=== PATIENT | female | born 1970 | race African-American/Black ===

== ENCOUNTER → 2016-10-29 | Outpatient (CLI) | payer BC ==
[~2016-10-29] MED LIST: ALBUTEROL 0.5ML INH; ALLERGY PILL; BENZONATATE PO; COZAAR25 MG; FLEXERIL10 M1 PO; KCL PO; LASIX PO; LASIX20 MG; MUCINEX DM1 TAB.SR . PO; NAPROSYN500 MG PO; PREDNISONE PO; ULTRAM PO; ZITHROMAX PO
--- NOTE | ~2016-10-29 | MR104 ---
[facility] A Service of [facility] & [facility] RADIOLOGY TEXT RESULTS PATIENT: NASREEN DIXON LOCATION: [facility] : 74 UNIT #: [id number] AGE: [address]: Justin Jackson MD SEX: F ORDER DR: [id number] [place] [id number] O MR#: [id number] Acc #: [id number] NAME: NASREEN DIXON. : 1970 SEX: F STUDY DATE/TIME: 10/29/2016 10:09 UNIT: [facility] ROOM: STUDY DESCRIPTION: MR Knee Wo Contrast Rt Attending Physician: Justin Jackson M.D. Referring Physician: Justin Jackson M.D. Ordering Physician: Justin Jackson M.D. Primary Care Physician: Miriam Carson M.D. MRI CENTER REPORT This report is preliminary unless electronic signature is present. EXAM Right knee MRI without contrast, 10/29/2016. HISTORY 46-year-old female with right knee pain status post fall 07/06/2016. No prior right knee surgery COMPARISON Knee x-rays, 08/27/2016 and 10/28/2016. TECHNIQUE Routine unenhanced multiplanar, multisequence high-field MR imaging of the right knee was performed. FINDINGS There is a vertical radial tear of the posterior horn medial meniscus. There is also a horizontal oblique undersurface tear of the posterior horn and body segment of the medial meniscus. The body segment is extruded from the medial joint line. There is mild degenerative fraying of the free margin of the posterior horn and body segment lateral meniscus without evidence of a discrete tear. Cruciate and collateral ligaments are intact. Extensor mechanism intact. Small joint effusion with moderate synovial proliferation. There is a sizable multilobulated popliteal cyst measuring at least 7 cm in length. 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 There is extensive full-thickness articular cartilage loss along the weightbearing surfaces in the medial compartment. Moderate to high-grade chondromalacia along the central and posterior weightbearing surfaces in the lateral compartment. Tricompartmental marginal osteophyte formation. [facility] A Service of [facility] & [facility] RADIOLOGY TEXT RESULTS PATIENT: NASREEN DIXON LOCATION: [facility] : 74 UNIT #: [id number] AGE: [address]: Justin Jackson MD SEX: F ORDER DR: Bone marrow signal is otherwise within expected limits. Visualized musculature is unremarkable. IMPRESSION 1. Vertical radial tear posterior horn medial meniscus. There is also a horizontal oblique undersurface tear of the posterior horn and body segment medial meniscus. The body segment is partially extruded from the medial joint line. 2. Degenerative fraying of the free margin of the posterior horn and body segment of the lateral meniscus without evidence of a discrete tear. 3. No acute ligament injury. 4. Moderately advanced tricompartmental arthrosis, detailed above. 5. Small joint effusion with moderate synovial proliferation. 6. Sizable multilobulated popliteal cyst measuring approximately 7 cm in length. Dictated by... Earnest Pleitez M.D. THIS IS AN ELECTRONICALLY VERIFIED REPORT Earnest Pleitez M.D. at 10/30/2016 4:43 PM ALEYDA/maribell TD: 10/30/2016 07:04 JOB #: [id number] MRI CENTER REPORT Page 1 of 1
== END | disposition home or self-care (01) ==
LOC: SMRI 09:53
DX: M17.11 Unilateral primary osteoarthritis, right knee (principal); M19.011 Primary osteoarthritis, right shoulder; S83.241A Other tear of medial meniscus, current injury, right knee, initial encounter; M71.21 Synovial cyst of popliteal space [Baker], right knee; M25.461 Effusion, right knee
CPT/HCPCS: 73721